=== PATIENT | male | born 1980 | race Caucasian/White ===

== ENCOUNTER → 2016-06-11 | Outpatient (CLI) | payer MEDICAID ==
[~2016-06-11] MED LIST: AMOXICILLIN 50500 MG PO; ATENOLOL25 MG PO; BACTRIM DS 8001 TAB PO; CEPHALEXIN500 MG PO; NORCO 325 MG-51 TAB PO; PAXIL10 MG PO; PENICILLIN PO; PERCOCET 325 MG1 TA3; PROPRANOLOL HCL20 MG PO; SUBOXONE 8 MG-21 TAB SL; XANAX 1MG TABLET1 MG PO
== END ==
LOC: LAB 14:34
DX: R31.9 Hematuria, unspecified (principal)

== ENCOUNTER → 2017-03-27 | Outpatient (CLI) | payer MEDICAID | LOC: LAB 11:27 | DX: R39.89 Other symptoms and signs involving the genitourinary system (principal) ==